=== PATIENT | male | born 1945 | race Caucasian/White ===

== ENCOUNTER 2017-10-07 22:34 | Emergency (ER) | payer OTHER ==
[2017-10-07] MEDS ORDERED: Albuterol/Ipratropium 3.0-0.5 MG/3 ML Neb Soln NEB ONE (22:58)
[2017-10-07] MEDS: Sodium Chloride 0.9% 10 ML Syringe FLUSH PRN ×2 (22:59→23:17)
[2017-10-07] MEDS ORDERED: Furosemide 40 MG/4 ML VIAL IVPUSH ONE (23:01)
[2017-10-07] MEDS: Albuterol/Ipratropium 3.0-0.5 MG/3 ML Neb Soln ONE (23:02)
[2017-10-07] MEDS ORDERED: methylPREDNISolone Sod Succ 125 MG in Sodium Chloride 0.9% 100 ML IV ONE (23:04)
[2017-10-07] MEDS ORDERED: methylPREDNISolone Sodium Succinate 125 MG/2 ML SDV IVPUSH ONE (23:11)
[2017-10-07 23:12] LABS: CHLORIDE,CL 106 mmol/L (98-107); SODIUM,NA 139 mmol/L (136-145)
--- NOTE | 2017-10-07 23:14 | EDM.PDOC ---
ED HPI GENERAL MEDICAL PROBLEM - General Chief Complaint: General Stated Complaint: short of breath Time Seen by Provider: 10/07/17 22:40 Source of Information: Reports: Family, RN History Limitations: Reports: Respiratory Distress - History of Present Illness INITIAL COMMENTS - FREE TEXT/NARRATIVE: Patient is a 72-year-old who came into the ER in severe shortness of breath diaphoretic hypoxic in the low 60s via ambulance "" paramedics patient states that [facility] to [facility] October 01 patient states that he was admitted with an infection and sent home on an inhaler albuterol and antibiotics doxycycline Onset: Gradual Duration: Hour(s):, Improving (With treatment) Location: Reports: Chest Quality: Reports: Pressure Severity: Severe Improves with: Reports: Medication Worsens with: Reports: None Context: Reports: Other (COPD) Treatments 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: Breathing Treatments, Oxygen - Related Data Allergies Allergy/AdvReac Type Severity Reaction Status Date / Time No Known Allergies Allergy Verified 10/07/17 22:43 Home Meds: Home Meds Albuterol Sulfate [Proventil Hfa] 2 puff IH Q6HR PRN 10/07/17 [History] Calcium Carbonate/Vitamin D3 [Calcium 250+D] 2 tab PO DAILY 10/07/17 [History] Carvedilol [Coreg] 6.25 mg PO BID 10/07/17 [History] Clopidogrel Bisulfate [Clopidogrel] 75 mg PO DAILY 10/07/17 [History] Doxycycline Hyclate 100 mg PO BID 10/07/17 [History] Furosemide [Lasix] 20 mg PO DAILY 10/07/17 [History] Isosorbide Mononitrate [Imdur] 15 mg PO DAILY 10/07/17 [History] Latanoprost [Xalatan] 1 drop EYEBOTH BEDTIME 10/07/17 [History] Losartan [Cozaar] 25 mg PO DAILY 10/07/17 [History] Triamcinolone Acetonide [Triamcinolone Acetonide 0.1% Crm] 1 applic TOP BID PRN 10/07/17 [History] atorvaSTATin [Lipitor] 80 mg PO BEDTIME 10/07/17 [History] guaiFENesin/Dextromethorphan [Guaifenesin Dm Syrup] 1 tsp PO Q6HR PRN 10/07/17 [ History] predniSONE [Prednisone] 5 mg PO DAILY 10/07/17 [History] ED ROS GENERAL - Review of Systems Review Of Systems: See Below Constitutional: Reports: Diaphoresis HEENT: Reports: No Symptoms Respiratory: Reports: Shortness of Breath Cardiovascular: Reports: No Symptoms Endocrine: Reports: No Symptoms GI/Abdominal: Reports: No Symptoms : Reports: No Symptoms Musculoskeletal: Reports: No Symptoms Skin: Reports: No Symptoms Neurological: Reports: No Symptoms Psychiatric: Reports: No Symptoms Hematologic/Lymphatic: Reports: No Symptoms Immunologic: Reports: No Symptoms ED EXAM, GENERAL - Physical Exam Exam: See Below Exam Limited By: Respiratory Distress General Appearance: Alert, WD/WN, Severe Distress Eye Exam: Bilateral Eye: EOMI, PERRL, Other (Status post bilateral cataract) Ears: Normal External Exam, Normal Canal, Hearing Grossly Normal, Normal TMs Nose: Normal Inspection, Normal Mucosa, No Blood Throat/Mouth: Normal Inspection, Normal Lips, Normal Teeth, Normal Gums, Normal Oropharynx, Normal Voice, No Airway Compromise Head: Atraumatic, Normocephalic Neck: Normal Inspection, Supple, Non-Tender Respiratory/Chest: Respiratory Distress, Decreased Breath Sounds, Wheezing, Prolonged Expiration Cardiovascular: Regular Rate, Rhythm, No Murmur, No Rub, Irregularly Irregular GI/Abdominal: Normal Bowel Sounds, Soft, Non-Tender, No Organomegaly, No Distention, No Abnormal Bruit, No Mass (Male) Exam: Normal Inspection, Circumcised, Other (Navas placed) Rectal (Males) Exam: Deferred Back Exam: Normal Inspection, Decreased Range of Motion Extremities: Normal Inspection, Normal Range of Motion, Non-Tender, Normal Capillary Refill, No Pedal Edema Neurological: Alert, Oriented, CN II-XII Intact, Normal Cognition, Normal Gait, Normal Reflexes, No Motor/Sensory Deficits Psychiatric: Normal Affect, Normal Mood Skin Exam: Warm, Dry, Intact, Normal Color, No Rash Lymphatic: No Adenopathy Course - Vital Signs Last Recorded V/S: Last Vital Signs Temp 96.2 F 10/07/17 22:38 Pulse 96 10/07/17 22:38 Resp 40 H 10/07/17 22:38 BP 153/89 H 10/07/17 22:38 Pulse Ox 94 L 10/07/17 22:38 - Orders/Labs/Meds Orders: Active Orders 24 hr Category Date Time Status EKG Documentation Completion [RC] ASDIRECTED Care 10/07/17 22:38 Active RT Aerosol Therapy [RC] ASDIRECTED Care 10/07/17 22:59 Active Urinary Catheter Assessment [RC] ASDIRECTED Care 10/07/17 22:58 Active Urinary Catheter Insertion [Insert Urinary Catheter] [ Care 10/07/17 23:00 Ordered OM.PC] Q24H Chest 1V Frontal [CR] Stat Exams 10/07/17 22:39 Ordered COMPREHENSIVE METABOLIC PN,CMP [CHEM] Stat Lab 10/07/17 22:39 Ordered LACTIC ACID [CHEM] Stat Lab 10/07/17 22:52 Ordered PRO B-TYPE NATRIUR PEPT,BNPPRO [CHEM] Stat Lab 10/07/17 22:39 Ordered TROPONIN I [CHEM] Stat Lab 10/07/17 22:40 Ordered Sodium Chloride 0.9% [Saline Flush] Med 10/07/17 22:56 Active 10 ml FLUSH ASDIRECTED PRN methylPREDNISolone Sod Succ [Solu-MEDROL] 125 mg Med 10/07/17 23:04 Ordered Sodium Chloride 0.9% [Normal Saline] 100 ml IV ONETIME Saline Lock Insert [OM.PC] Routine Oth 10/07/17 22:56 Ordered Medication Orders Methylprednisolone Sodium Succinate 125 mg/ Sodium Chloride 101 mls @ 100 mls/ hr IV ONETIME ONE Stop: 10/08/17 00:08 Sodium Chloride (Saline Flush) 10 ml FLUSH ASDIRECTED PRN PRN Reason: Keep Vein Open Last Admin: 10/07/17 22:59 Dose: 10 ml Labs: Laboratory Tests 10/07/17 Range/Units 22:45 WBC 14.6 H (4.0-10.2) K/uL RBC 4.46 (4.33-5.41) M/uL Hgb 13.5 (13.1-16.8) g/dL Hct 42.4 (39.0-49.0) % MCV 95.1 (84.0-98.0) fL MCH 30.3 (28.2-33.3) pg MCHC 31.8 (31.7-36.0) g/dL RDW 14.1 (11.2-14.1) % Plt Count 250 (150-350) K/uL Neut % (Auto) 62.4 (45.0-80.0) % Lymph % (Auto) 21.3 (10.0-50.0) % [place] % (Auto) 10.1 (2.0-14.0) % Eos % (Auto) 5.9 H (0.0-5.0) % Baso % (Auto) 0.3 (0.0-2.0) % Neut # (Auto) 9.12 H (1.40-7.00) K/uL Lymph # (Auto) 3.12 (0.50-3.50) K/uL [place] # (Auto) 1.48 H (0.00-1.00) K/uL Eos # (Auto) 0.86 H (0.00-0.50) K/uL Baso # (Auto) 0.04 (0.00-0.20) K/uL Meds: Medications Generic Name Dose Route Start Last Admin Trade Name Freq PRN Reason Stop Dose Admin Methylprednisolone Sodium 101 mls @ 100 mls/hr 10/07/17 23:04 Succinate 125 mg/ Sodium IV 10/08/17 00:08 Chloride ONETIME ONE Sodium Chloride 10 ml 10/07/17 22:56 10/07/17 22:59 Saline Flush FLUSH 10 ml ASDIRECTED PRN Administration Keep Vein Open Discontinued Medications Generic Name Dose Route Start Last Admin Trade Name Freq PRN Reason Stop Dose Admin Albuterol/Ipratropium Confirm 10/07/17 22:42 10/07/17 23:02 Duoneb 3.0-0.5 Mg/3 Ml Administered 10/07/17 22:43 3 ml Dose Administration 3 ml .ROUTE .STK-MED ONE Albuterol/Ipratropium 3 ml 10/07/17 22:58 10/07/17 23:03 Duoneb 3.0-0.5 Mg/3 Ml NEB 10/07/17 22:59 Not Given ONETIME ONE Furosemide 40 mg 10/07/17 23:01 Lasix IVPUSH 10/07/17 23:02 NOW ONE Departure - Departure Time of Disposition: 00:07 Disposition: DC/[facility] to [facility] Condition: Fair Clinical Impression: CHF, Congestive heart failure, COPD exacerbation - Discharge Information - Problem List & Annotations (1) COPD (chronic obstructive pulmonary disease) SNOMED Code(s): 94424631 Code(s): J44.9 - CHRONIC OBSTRUCTIVE PULMONARY DISEASE, UNSPECIFIED Status : Acute Annotation/Comment:: Patient given DuoNeb's 2 with improvement of breathing and also started on Solu medrol 125 mg IV stat Qualifiers: COPD type: COPD with acute exacerbation Qualified Code(s): J44.1 - Chronic obstructive pulmonary disease with (acute) exacerbation (2) CHF (congestive heart failure) SNOMED Code(s): 74407859 Code(s): I50.9 - HEART FAILURE, UNSPECIFIED Status: Acute Annotation/ Comment:: IV started Lasix given [place] inserted patient drinks 6500 mL clear - Problem List Review Problem List Initiated/Reviewed/Updated: Yes - My Orders Last 24 Hours: My Active Orders 10/07/17 22:38 EKG Documentation Completion [RC] ASDIRECTED 10/07/17 22:39 Chest 1V Frontal [CR] Stat COMPREHENSIVE METABOLIC PN,CMP [CHEM] Stat PRO B-TYPE NATRIUR PEPT,BNPPRO [CHEM] Stat 10/07/17 22:40 TROPONIN I [CHEM] Stat 10/07/17 22:52 LACTIC ACID [CHEM] Stat 10/07/17 22:56 Sodium Chloride 0.9% [Saline Flush] 10 ml FLUSH ASDIRECTED PRN Saline Lock Insert [OM.PC] Routine 10/07/17 22:58 Urinary Catheter Assessment [RC] ASDIRECTED 10/07/17 22:59 RT Aerosol Therapy [RC] ASDIRECTED 10/07/17 23:00 Urinary Catheter Insertion [Insert Urinary Catheter] [OM.PC] Q24H 10/07/17 23:04 methylPREDNISolone Sod Succ [Solu-MEDROL] 125 mg Sodium Chloride 0.9% [Normal Saline] 100 ml IV ONETIME - Assessment/Plan Last 24 Hours: My Active Orders 10/07/17 22:38 EKG Documentation Completion [RC] ASDIRECTED 10/07/17 22:39 Chest 1V Frontal [CR] Stat COMPREHENSIVE METABOLIC PN,CMP [CHEM] Stat PRO B-TYPE NATRIUR PEPT,BNPPRO [CHEM] Stat 10/07/17 22:40 TROPONIN I [CHEM] Stat 10/07/17 22:52 LACTIC ACID [CHEM] Stat 10/07/17 22:56 Sodium Chloride 0.9% [Saline Flush] 10 ml FLUSH ASDIRECTED PRN Saline Lock Insert [OM.PC] Routine 10/07/17 22:58 Urinary Catheter Assessment [RC] ASDIRECTED 10/07/17 22:59 RT Aerosol Therapy [RC] ASDIRECTED 10/07/17 23:00 Urinary Catheter Insertion [Insert Urinary Catheter] [OM.PC] Q24H 10/07/17 23:04 methylPREDNISolone Sod Succ [Solu-MEDROL] 125 mg Sodium Chloride 0.9% [Normal Saline] 100 ml IV ONETIME Plan: Patient will be transferred [facility] Dr. James accepting physician blood cultures were obtained here but I will not start him on antibiotics at this time since he will be going to the [facility]
[2017-10-07 23:38] LABS: O2 DELIVERY DEVICE VENT MASK
[2017-10-07 23:39] LABS: BICARBONATE,ARTERIAL 24.5 mmol/L (22-26); O2 SATURATION ARTERIAL 92 % (95-98); PCO2 ARTERIAL 42 mmHG (35-45); PO2 ARTERIAL 66 mmHG (80-105)
[2017-10-07 23:40] LABS: BASE EXCESS ARTERIAL -1 mmol/L (-2-3)
== END 2017-10-08 00:05 ==
LOC: LL.ED 22:34
DX: I50.9 Heart failure, unspecified (principal); J44.1 Chronic obstructive pulmonary disease with (acute) exacerbation; Z79.899 Other long term (current) drug therapy
CPT/HCPCS: 36000; 36415; 51702; 71045; 80053; 81001; 82803; 83605; 83880; 84484; 85025; 87040; 93005; 94640; 96374; 96375; 99285; J1940; J2930; J7050

== ENCOUNTER 2017-11-09 20:17 | Emergency (ER) | payer MEDICAID ==
[2017-11-09] MEDS ORDERED: Aspirin 81 MG Tab.Chew PO ONE (20:28)
[2017-11-09] MEDS ORDERED: Aspirin 81 MG Tab.Chew PO STA (20:32)
[2017-11-09] MEDS ORDERED: Nitroglycerin 0.4 MG Tab.SL SL ONE (20:39)
--- NOTE | 2017-11-09 20:54 | EDM.PDOC ---
ED HPI GENERAL MEDICAL PROBLEM - General Chief Complaint: General Stated Complaint: chest pain Time Seen by Provider: 11/09/17 20:50 Source of Information: Reports: Patient History Limitations: Reports: No Limitations - History of Present Illness INITIAL COMMENTS - FREE TEXT/NARRATIVE: Patient is a 72-year-old well known to myself history of COPD states that he was at the [employer] making puzzles when he developed chest pain chest pain lasted until he got here radiated around to 5 out of 10 we did give him 4 baby aspirins and a nitroglycerin and pain disappeared at this time patient is pain- free Onset: Sudden Duration: Minutes:, Improving Location: Reports: Chest Quality: Reports: Ache, Dull, Pressure Severity: Moderate Improves with: Reports: Rest Context: Reports: Other Associated Symptoms: Reports: No Other Symptoms 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 - Related Data Allergies Allergy/AdvReac Type Severity Reaction Status Date / Time No Known Allergies Allergy Verified 10/07/17 22:43 Home Meds: Home Meds Albuterol Sulfate [Proventil Hfa] 2 puff IH Q6HR PRN 10/07/17 [History] Calcium Carbonate/Vitamin D3 [Calcium 250+D] 2 tab PO DAILY 10/07/17 [History] Carvedilol [Coreg] 6.25 mg PO BID 10/07/17 [History] Clopidogrel Bisulfate [Clopidogrel] 75 mg PO DAILY 10/07/17 [History] Doxycycline Hyclate 100 mg PO BID 10/07/17 [History] Furosemide [Lasix] 20 mg PO DAILY 10/07/17 [History] Isosorbide Mononitrate [Imdur] 15 mg PO DAILY 10/07/17 [History] Latanoprost [Xalatan] 1 drop EYEBOTH BEDTIME 10/07/17 [History] Losartan [Cozaar] 25 mg PO DAILY 10/07/17 [History] Triamcinolone Acetonide [Triamcinolone Acetonide 0.1% Crm] 1 applic TOP BID PRN 10/07/17 [History] atorvaSTATin [Lipitor] 80 mg PO BEDTIME 10/07/17 [History] guaiFENesin/Dextromethorphan [Guaifenesin Dm Syrup] 1 tsp PO Q6HR PRN 10/07/17 [ History] Past Medical History Cardiovascular History: Reports: Bypass Respiratory History: Reports: Other (See Below) Other Respiratory History: Recent pneumonia Gastrointestinal History: Reports: None Genitourinary History: Reports: None Musculoskeletal History: Reports: Fracture, Other (See Below) Other Musculoskeletal History: fractured ribs 'many years ago' Neurological History: Reports: None Psychiatric History: Reports: None Endocrine/Metabolic History: Reports: None Hematologic History: Reports: None Immunologic History: Reports: None Oncologic (Cancer) History: Reports: None Dermatologic History: Reports: None - Infectious Disease History Infectious Disease History: Reports: Chicken Pox, Measles, Mumps, Rubella - Past Surgical History Cardiovascular Surgical History: Reports: Coronary Artery Bypass GI Surgical History: Reports: None Social & Family History - Family History Family Medical History: Noncontributory - Caffeine Use Caffeine Use: Reports: Coffee, Soda ED ROS GENERAL - Review of Systems Review Of Systems: See Below Constitutional: Reports: No Symptoms HEENT: Reports: No Symptoms Respiratory: Reports: No Symptoms Cardiovascular: Reports: Chest Pain Endocrine: Reports: No Symptoms GI/Abdominal: Reports: No Symptoms : Reports: No Symptoms Musculoskeletal: Reports: No Symptoms Skin: Reports: No Symptoms Neurological: Reports: No Symptoms Psychiatric: Reports: No Symptoms Hematologic/Lymphatic: Reports: No Symptoms ED EXAM, GENERAL - Physical Exam Exam: See Below Exam Limited By: No Limitations General Appearance: Alert, WD/WN, No Apparent Distress Ears: Normal External Exam, Normal Canal, Hearing Grossly Normal, Normal TMs Ear Exam: Bilateral Ear: Auricle Normal, Canal Normal, TM normal Nose: Normal Inspection, Normal Mucosa, No Blood Throat/Mouth: Normal Inspection, Normal Lips, Normal Teeth, Normal Gums, Normal Oropharynx, Normal Voice, No Airway Compromise Head: Atraumatic, Normocephalic Neck: Normal Inspection, Supple, Non-Tender, Full Range of Motion Respiratory/Chest: No Respiratory Distress, Lungs Clear, No Accessory Muscle Use , Chest Non-Tender, Decreased Breath Sounds Cardiovascular: Normal Peripheral Pulses, Regular Rate, Rhythm, No Edema, No JVD , No Murmur, No Rub. No: Diastolic Murmur, Systolic Murmur GI/Abdominal: Normal Bowel Sounds, Soft, Non-Tender, No Organomegaly, No Distention, No Abnormal Bruit, No Mass (Male) Exam: Deferred Rectal (Males) Exam: Deferred Back Exam: Normal Inspection, Full Range of Motion, NT Extremities: Normal Inspection, Normal Range of Motion, Non-Tender, Normal Capillary Refill, No Pedal Edema Neurological: Alert, Oriented, CN II-XII Intact, Normal Cognition, Normal Gait, Normal Reflexes, No Motor/Sensory Deficits Psychiatric: Normal Affect, Normal Mood Skin Exam: Warm, Dry, Intact, Normal Color, No Rash Lymphatic: No Adenopathy Course - Vital Signs Last Recorded V/S: Last Vital Signs Temp 97.8 F 11/09/17 20:20 Pulse 69 11/09/17 22:15 Resp 22 H 11/09/17 22:15 BP 110/76 11/09/17 22:15 Pulse Ox 95 11/09/17 22:15 - Orders/Labs/Meds Orders: Active Orders 24 hr Category Date Time Status EKG Documentation Completion [RC] ASDIRECTED Care 11/09/17 21:04 Active Ready for Discharge [RC] PER UNIT ROUTINE Care 11/10/17 00:40 Ordered Chest 1V Frontal [CR] Stat Exams 11/09/17 20:42 Taken Labs: Laboratory Tests 11/09/17 11/09/17 11/09/17 Range/Units 20:42 20:42 20:44 WBC (4.0-10.2) K/uL RBC (4.33-5.41) M/uL Hgb (13.1-16.8) g/dL Hct (39.0-49.0) % MCV (84.0-98.0) fL MCH (28.2-33.3) pg MCHC (31.7-36.0) g/dL RDW (11.2-14.1) % Plt Count (150-350) K/uL Neut % (Auto) (45.0-80.0) % Lymph % (Auto) (10.0-50.0) % [place] % (Auto) (2.0-14.0) % Eos % (Auto) (0.0-5.0) % Baso % (Auto) (0.0-2.0) % Neut # (Auto) (1.40-7.00) K/uL Lymph # (Auto) (0.50-3.50) K/uL [place] # (Auto) (0.00-1.00) K/uL Eos # (Auto) (0.00-0.50) K/uL Baso # (Auto) (0.00-0.20) K/uL D-Dimer, Quantitative 499 H (0-400) ng/mL Sodium 140 (136-145) mmol/L Potassium 4.0 (3.5-5.1) mmol/L Chloride 106 (98-107) mmol/L Carbon Dioxide 28.5 (21.0-32.0) mmol/L BUN 12 (7-18) mg/dL Creatinine 0.83 (0.51-1.17) mg/dL Est Cr Clr Drug Dosing 75.21 mL/min Estimated GFR (MDRD) > 60 mL/min Glucose 110 H (74-106) mg/dL Lactic Acid 1.0 (0.4-2.0) mmol/L Calcium 8.5 (8.5-10.1) mg/dL Total Bilirubin 0.3 (0.2-1.0) mg/dL AST 20 (15-37) U/L ALT 27 (12-78) U/L Alkaline Phosphatase 58 (46-116) IU/L Creatine Kinase 131 (26-308) U/L Creatine Kinase Index 1.5 (0.0-2.5) % CK-MB (CK-2) 1.90 (0.00-3.60) ng/mL Troponin I 0.002 (0.000-0.056) ng/mL NT-Pro-B Natriuret Pep 375 H (0-125) pg/mL Total Protein 6.5 (6.4-8.2) g/dL Albumin 3.0 L (3.4-5.0) g/dL 11/09/17 11/09/17 Range/Units 20:46 23:52 WBC 5.4 (4.0-10.2) K/uL RBC 4.15 L (4.33-5.41) M/uL Hgb 12.6 L (13.1-16.8) g/dL Hct 39.7 (39.0-49.0) % MCV 95.7 (84.0-98.0) fL MCH 30.4 (28.2-33.3) pg MCHC 31.7 (31.7-36.0) g/dL RDW 14.6 H (11.2-14.1) % Plt Count 259 (150-350) K/uL Neut % (Auto) 47.8 (45.0-80.0) % Lymph % (Auto) 30.6 (10.0-50.0) % [place] % (Auto) 14.8 H (2.0-14.0) % Eos % (Auto) 6.1 H (0.0-5.0) % Baso % (Auto) 0.7 (0.0-2.0) % Neut # (Auto) 2.58 (1.40-7.00) K/uL Lymph # (Auto) 1.65 (0.50-3.50) K/uL [place] # (Auto) 0.80 (0.00-1.00) K/uL Eos # (Auto) 0.33 (0.00-0.50) K/uL Baso # (Auto) 0.04 (0.00-0.20) K/uL D-Dimer, Quantitative (0-400) ng/mL Sodium (136-145) mmol/L Potassium (3.5-5.1) mmol/L Chloride (98-107) mmol/L Carbon Dioxide (21.0-32.0) mmol/L BUN (7-18) mg/dL Creatinine (0.51-1.17) mg/dL Est Cr Clr Drug Dosing mL/min Estimated GFR (MDRD) mL/min Glucose (74-106) mg/dL Lactic Acid (0.4-2.0) mmol/L Calcium (8.5-10.1) mg/dL Total Bilirubin (0.2-1.0) mg/dL AST (15-37) U/L ALT (12-78) U/L Alkaline Phosphatase (46-116) IU/L Creatine Kinase (26-308) U/L Creatine Kinase Index (0.0-2.5) % CK-MB (CK-2) (0.00-3.60) ng/mL Troponin I 0.004 (0.000-0.056) ng/mL NT-Pro-B Natriuret Pep (0-125) pg/mL Total Protein (6.4-8.2) g/dL Albumin (3.4-5.0) g/dL Meds: Medications Discontinued Medications Generic Name Dose Route Start Last Admin Trade Name Freq PRN Reason Stop Dose Admin Aspirin 162 mg 08/11/18 20:28 11/09/17 21:01 Aspirin PO 11/09/17 20:29 162 mg ONETIME ONE Administration Aspirin 162 mg 11/09/17 20:32 11/09/17 21:02 Aspirin PO 11/09/17 20:33 162 mg ONETIME STA Administration Nitroglycerin 0.4 mg 11/09/17 20:39 11/09/17 20:40 Nitrostat SL 11/09/17 20:40 0.4 mg ONETIME ONE Administration Departure - Departure Time of Disposition: 00:42 Disposition: Home, Self-Care 01 Clinical Impression: Chest pain Qualifiers: Chest pain type: unspecified Qualified Code(s): R07.9 - Chest pain, unspecified - Discharge Information *PRESCRIPTION DRUG MONITORING PROGRAM REVIEWED*: Not Applicable *COPY OF PRESCRIPTION DRUG MONITORING REPORT IN PATIENT CANDELARIA: Not Applicable Instructions: Pain Without a Known Cause Forms: ED Department Discharge Care Plan Goals: Patient will be referred to cardiac stress test patient is to call for appointment at my office asked for [place] patient is to return to the ER if she any changes pain. - My Orders Last 24 Hours: My Active Orders 11/09/17 20:42 Chest 1V Frontal [CR] Stat 11/09/17 21:04 EKG Documentation Completion [RC] ASDIRECTED 11/10/17 00:40 Ready for Discharge [RC] PER UNIT ROUTINE - Assessment/Plan Last 24 Hours: My Active Orders 11/09/17 20:42 Chest 1V Frontal [CR] Stat 11/09/17 21:04 EKG Documentation Completion [RC] ASDIRECTED 11/10/17 00:40 Ready for Discharge [RC] PER UNIT ROUTINE
[2017-11-09 21:12] LABS: CHLORIDE,CL 106 mmol/L (98-107); SODIUM,NA 140 mmol/L (136-145)
== END 2017-11-10 00:50 | disposition home or self-care (01) ==
LOC: LL.ED 20:17
DX: R07.9 Chest pain, unspecified (principal); Z79.899 Other long term (current) drug therapy
CPT/HCPCS: 36000; 36415; 71045; 80053; 82550; 82553; 83605; 83880; 84484; 85025; 85379; 93005; 99285; A9270-GY

== ENCOUNTER 2021-05-22 00:43 | Emergency (ER) | payer OTHER, MEDICARE | END 2021-05-22 01:20 | disposition home or self-care (01) | LOC: LL.ED 00:43 | DX: S01.112A Laceration without foreign body of left eyelid and periocular area, initial encounter (principal); Z79.02 Long term (current) use of antithrombotics/antiplatelets; Z79.899 Other long term (current) drug therapy; W06.XXXA Fall from bed, initial encounter | CPT/HCPCS: 12001; 12011; 99282-25; 99283 ==